=== PATIENT | male | born 1995 | race Caucasian/White ===

== ENCOUNTER 2017-02-12 12:13 | Emergency (ER) | payer BC ==
[~2017-02-12] VITALS: Ht 177.8 cm; Wt 80.4 kg
[2017-02-12 12:17] VITALS: TEMP 36.8; Ht 177.8 cm; Wt 80.4 kg
[2017-02-12] MEDS ORDERED: KETOROLAC TROMETHAMINE 30 MG/ML VIAL IV STA (12:28)
[2017-02-12] MEDS ORDERED: SODIUM CHLORIDE 0.9% 1000ML 1,000 ML IV STA (12:28)
[2017-02-12] MEDS ORDERED: METOCLOPRAMIDE HCL INJ 5 MG/ML 2 ML VIAL IV STA (12:28)
--- NOTE | 2017-02-12 12:37 | EMERGENCY ROOM VISIT NOTE ---
History Report prepared by Kristina: Geni Briones Under the Supervision of: Dr. Jarvis Sandoval M.D. First contact with patient: 12:21 Chief Complaint: ABDOMINAL PAIN Stated Complaint: STOMACH PAIN History of Present Illness The patient is a 21 year old male who presents to the Emergency Room with complaints of intermittent right sided abdominal pain beginning last night. The patient states that he was at the bars with his friends last night when he began to have a very sharp pain in his abdomen. He reports that he went home and after laying down for about 10 minutes the pain resolved before returning this morning. He notes that he went to [facility] today and was given Zofran for his nausea and vomiting and was told to come into the ED. The patient states that he has had diarrhea 2 times a day for the last few days. He complains of abdominal sensitivity. The patient denies any constipation. Source of History: patient Onset: last night Position: abdomen Quality: sharp Timing: intermittent Associated Symptoms: + diarrhea Note: Pt complains of abdominal sensitivity. He denies any constipation. Review of Systems See HPI for pertinent positives & negatives. A total of 10 systems reviewed and were otherwise negative. Past Medical & Surgical Medical Problems: (1) Asthma Family History No pertinent family history stated. Social History Smoking Status: Never Smoker Marital Status: single Housing Status: lives with roommate Occupation Status: [employer] student Current/Historical Medications Scheduled Alprazolam (Xanax), 1 MG PO Q6H Ondasetron Odt (Zofran Odt), 4 MG SL Q6H Scheduled PRN Amphetamine-Dextroamphetamine 15MG (Adderall Xr 15MG), 15 MG PO for . Amphetamine-Dextroamphetamine 5MG (Adderall 5MG), 5 MG PO for . Allergies Coded Allergies: No Known Allergies (Unverified , 02/12/17) Physical Exam Vital Signs Date Time Temp Pulse Resp B/P (MAP) Pulse Ox O2 Delivery O2 Flow Rate FiO2 02/12/17 14:35 72 18 105/76 100 02/12/17 13:31 64 15 98/72 97 Room Air 02/12/17 13:05 64 02/12/17 12:30 78 17 123/75 97 Room Air 02/12/17 12:17 36.8 88 16 124/79 96 Room Air Physical Exam GENERAL: Patient is a healthy-appearing well-nourished male HEAD: Normocephalic atraumatic EYES: Ocular movements intact pupils equal and react to light OROPHARYNX mucous membranes are moist no exudates present no erythema or edema present NECK: Supple no nuchal rigidity CHEST: Good equal expansion LUNGS: Clear and equal to auscultation CARDIAC: Normal S1 and S2 ABDOMEN: Soft nontender no guarding BACK: No CVA tenderness EXTREMITIES: No pain upon palpation normal muscle strength in all groups no clubbing cyanosis or edema NEURO: Patient is following commands and answering questions appropriately. Alert and oriented x3 Cranial Nerves 2-12 grossly intact Medical Decision & Procedures ER Provider Diagnostic Interpretation: X-ray results as stated below per interpretation by me and the radiologist: ABDOMEN 2VIEW W/PA CHEST RTN FINDINGS: Cardiomediastinal and hilar silhouettes are within normal limits. No pneumothorax, pleural effusion or focal airspace consolidation. No pneumoperitoneum on the upright projection. Bowel gas pattern is nonobstructive. No urolithiasis or fracture. IMPRESSION: Unremarkable acute abdominal series radiographs. The above report was generated using voice recognition software. It may contain grammatical, syntax or spelling errors. Electronically signed by: Dashawn Alcantar M.D. 02/12/2017 1:12 PM Dictated Date/Time: 02/12/2017 1:09 PM Laboratory Results 02/12/17 12:35 Red Blood Count 5.22, Mean Corpuscular Volume 86.8, Mean Corpuscular Hemoglobin 31.8, Mean Corpuscular Hemoglobin Concent 36.6, Mean Platelet Volume 9.1, Neutrophils (%) (Auto) 59.4, Lymphocytes (%) (Auto) 33.2, Monocytes (%) (Auto) 5.0, Eosinophils (%) (Auto) 1.6, Basophils (%) (Auto) 0.8, Neutrophils # (Auto) 2.28, Lymphocytes # (Auto) 1.27, Monocytes # (Auto) 0.19, Eosinophils # (Auto) 0.06, Basophils # (Auto) 0.03 02/12/17 12:35 Test 02/12/17 12:35 02/12/17 13:35 White Blood Count 3.83 K/uL (4.8-10.8) Red Blood Count 5.22 M/uL (4.7-6.1) Hemoglobin 16.6 g/dL (14.0-18.0) Hematocrit 45.3 % (42-52) Mean Corpuscular Volume 86.8 fL (80-100) Mean Corpuscular Hemoglobin 31.8 pg (25-34) Mean Corpuscular Hemoglobin Concent 36.6 g/dl (32-36) Platelet Count 269 K/uL (130-400) Mean Platelet Volume 9.1 fL (7.4-10.4) Neutrophils (%) (Auto) 59.4 % Lymphocytes (%) (Auto) 33.2 % Monocytes (%) (Auto) 5.0 % Eosinophils (%) (Auto) 1.6 % Basophils (%) (Auto) 0.8 % Neutrophils # (Auto) 2.28 K/uL (1.4-6.5) Lymphocytes # (Auto) 1.27 K/uL (1.2-3.4) Monocytes # (Auto) 0.19 K/uL (0.11-0.59) Eosinophils # (Auto) 0.06 K/uL (0-0.5) Basophils # (Auto) 0.03 K/uL (0-0.2) RDW Standard Deviation 39.3 fL (36.4-46.3) RDW Coefficient of Variation 12.4 % (11.5-14.5) Immature Granulocyte % (Auto) 0.0 % Immature Granulocyte # (Auto) 0.00 K/uL (0.00-0.02) Anion Gap 4.0 mmol/L (3-11) Est Creatinine Clear Calc Drug Dose 120.7 ml/min Estimated GFR () 124.1 Estimated GFR (Non- 107.1 BUN/Creatinine Ratio 10.2 (10-20) Calcium Level 10.0 mg/dl (8.5-10.1) Total Bilirubin 0.8 mg/dl (0.2-1) Direct Bilirubin 0.2 mg/dl (0-0.2) Aspartate Amino Transf (AST/SGOT) 15 U/L (15-37) Alanine Aminotransferase (ALT/SGPT) 24 U/L (12-78) Alkaline Phosphatase 65 U/L (45-117) Total Protein 7.8 gm/dl (6.4-8.2) Albumin 4.3 gm/dl (3.4-5.0) Lipase 75 U/L (73-393) Urine Color YELLOW Urine Appearance CLEAR (CLEAR) Urine pH 8.0 (4.5-7.5) Urine Specific [place] 1.020 (1.000-1.030) Urine Protein NEG (NEG) Urine Glucose (UA) NEG (NEG) Urine Ketones NEG (NEG) Urine Occult Blood NEG (NEG) Urine Nitrite NEG (NEG) Urine Bilirubin NEG (NEG) Urine Urobilinogen NEG (NEG) Urine Leukocyte Esterase NEG (NEG) Labs reviewed by ED physician. Medications Administered Medications (Trade) Dose Ordered Sig/Joan Route Start Time Stop Time Status Last Admin Dose Admin Sodium Chloride 1,000 ml @ 999 mls/hr Q1H1M STAT IV 02/12/17 12:28 02/12/17 13:28 DC 02/12/17 12:37 999 MLS/HR Metoclopramide HCl (Reglan Inj) 10 mg NOW STAT IV 02/12/17 12:28 02/12/17 12:29 DC 02/12/17 12:37 10 MG Ketorolac Tromethamine (Toradol Inj) 30 mg NOW STAT IV 02/12/17 12:28 02/12/17 12:29 DC 02/12/17 12:38 30 MG Famotidine (Pepcid Tab) 20 mg NOW STAT PO 02/12/17 13:16 02/12/17 13:18 DC 02/12/17 13:27 20 MG Sucralfate (Carafate Tab) 1 gm NOW STAT PO 02/12/17 13:16 02/12/17 13:18 DC 02/12/17 13:27 1 GM Lidocaine HCl (Viscous Lidocaine 2% Soln) 20 ml STK-MED ONCE .ROUTE 02/12/17 13:22 02/12/17 13:23 DC 02/12/17 13:27 20 ML Al Hydroxide/Mg Hydroxide (Maalox Susp) 30 ml STK-MED ONCE .ROUTE 02/12/17 13:22 02/12/17 13:23 DC 02/12/17 13:27 30 ML Ondansetron HCl (ZOFRAN ODT 4MG Home Pack) 1 homepack UD ONCE PO 02/12/17 14:15 02/12/17 14:16 DC 02/12/17 14:30 1 HOMEPACK ED Course 1221: Past medical records reviewed. The patient was evaluated in room C12B. A complete history and physical examination was performed. I offered to call the patient's parents and he refused. 1228: Toradol Inj 30mg IV, Reglan Inj 10g IV, Sodium Chloride 1000 ml @ 999 mls/ hr IV. 1316: Carafate Tab 1gm PO, Pepcid Tab 20mg PO, GI Cocktail 24ml PO. 1341: I reevaluated the patient. He is in no pain. I talked to him about a CT and he does not want to proceed with it. 1415: Ondansetron HCl 1 homepack PO. 1417: Upon reexamination the patient is doing well. I discussed results and treatment plan with the patient. He verbalizes agreement and understanding. The patient is ready for discharge. Medical Decision Differential diagnosis: Etiologies such as appendicitis, diverticulitis, PUD, biliary pathology, UTI, pancreatitis, obstruction, mesenteric ischemia, aortic pathology, infections, inflammatory bowel disease, renal colic, as well as others were entertained. This is a 21-year-old male who presents emergency department complaining of vomiting. Serial abdominal examinations were performed on the patient in the emergency department and at no tender the patient exhibited a surgical abdomen or even abdominal tenderness. In addition the patient is afebrile and does not have an elevation in his white blood count cell count. He has a normal lipase liver profile as well as chem profile. An IV was established, patient given Toradol along with a normal saline bolus and Zofran. The patient tolerated this well and was able swallow GI cocktail Pepcid and Carafate. I gave the patient the option of having a CAT scan however using shared medical decision- making with all the above findings the patient decided he did not wish to have a CAT scan. I do feel he can be safely discharged home at this point for follow -up with his primary care physician. Patient was in agreement with the treatment plan. I also offered to call this patient's parents however he refused. Medication Reconcilliation Current Medication List: was personally reviewed by me Blood Pressure Screening Patient's blood pressure: Normal blood pressure Blood pressure disposition: Did not require urgent referral Impression Primary Impression: Gastroenteritis Scribe Attestation The scribe's documentation has been prepared under my direction and personally reviewed by me in its entirety. I confirm that the note above accurately reflects all work, treatment, procedures, and medical decision making performed by me. Departure Information Dispostion Home / Self-Care Prescriptions Ondasetron Odt (ZOFRAN ODT) 4 Mg Tab 4 MG SL Q6H for Nausea, #6 TAB Prov: Jarvis Sandoval MD 02/12/17 Referrals No Doctor, Assigned (PCP) Forms HOME CARE DOCUMENTATION FORM, IMPORTANT VISIT INFORMATION Patient Instructions ED Gastroenteritis Report [place], My [facility] Additional Instructions Avoid alcohol use for next week Return if you develop fevers or pain You have been examined and treated today on an emergency basis only. This is not a substitute for, or an effort to provide, complete comprehensive medical care. It is impossible to recognize and treat all injuries or illnesses in a single emergency department visit. It is therefore important that you follow up closely with [facility]. Call as soon as possible for an appointment. Thank you for your time and consideration. I look forward to speaking with you again soon. Please don't hesitate to call us if you have any questions.
[2017-02-12 13:07] LABS: BASO % 0.8 %; BASO ABS # 0.03 K/uL (0-0.2); COMPLETE YES; EOS % 1.6 %; HEMATOCRIT 45.3 % (42-52); LYMPH % 33.2 %; LYMPH ABS # 1.27 K/uL (1.2-3.4); MEAN CELL VOLUME 86.8 fL (80-100); MEAN CORPUSCULAR HEMOGLOBIN 31.8 pg (25-34); MEAN CORPUSCULAR HGB CONC 36.6 g/dl (32-36); MEAN PLATELET VOLUME 9.1 fL (7.4-10.4); NEUT % 59.4 %; PLATELET COUNT 269 K/uL (130-400); RED BLOOD COUNT 5.22 M/uL (4.7-6.1); WHITE BLOOD COUNT 3.83 K/uL (4.8-10.8)
--- NOTE | 2017-02-12 13:13 | DIAGNOSTIC IMAGING REPORT ---
ABDOMEN 2VIEW W/PA CHEST RTN HISTORY: 21 years-old Male Pt c/o RUQ abd pain acute right upper quadrant abdominal pain. Initial exam. COMPARISON: None available. TECHNIQUE: Frontal view of the chest with erect and supine views of the abdomen FINDINGS: Cardiomediastinal and hilar silhouettes are within normal limits. No pneumothorax, pleural effusion or focal airspace consolidation. No pneumoperitoneum on the upright projection. Bowel gas pattern is nonobstructive. No urolithiasis or fracture. IMPRESSION: Unremarkable acute abdominal series radiographs. The above report was generated using voice recognition software. It may contain grammatical, syntax or spelling errors. Electronically signed by: Dashawn Alcantar M.D. 02/12/2017 1:12 PM Dictated Date/Time: 02/12/2017 1:09 PM
[2017-02-12] MEDS ORDERED: SUCRALFATE 1 GM TAB PO STA (13:16)
[2017-02-12] MEDS ORDERED: FAMOTIDINE 20 MG TAB PO STA (13:16)
[2017-02-12] MEDS ORDERED: GI COCKTAIL PO STA (13:16)
[2017-02-12] MEDS ORDERED: AMPH15CA7 PO (13:20)
[2017-02-12] MEDS ORDERED: ALPR-411 PO (13:20)
[2017-02-12] MEDS ORDERED: AMPH1TAB58 PO (13:20)
[2017-02-12] MEDS ORDERED: ALUMINUM/MAGNESIUM SUSP 30 ML UDC ONE (13:22)
[2017-02-12] MEDS ORDERED: LIDOCAINE HCL 2% VISC SOLN 20 ML UDC ONE (13:22)
[2017-02-12 13:27] LABS: BUN/CREATININE RATIO 10.2 (10-20); POTASSIUM 3.8 mmol/L (3.5-5.1)
[2017-02-12 13:56] LABS: MANUAL MICROSCOPIC REQUIRED? NO; URINE APPEARANCE CLEAR (CLEAR); URINE BILIRUBIN NEG (NEG); URINE COLOR YELLOW; URINE NITRITE NEG (NEG); UROBILINOGEN NEG (NEG)
[2017-02-12] MEDS ORDERED: ONDA4TAB10 SL (14:14)
[2017-02-12] MEDS ORDERED: ONDANSETRON HOME PACK 4MG OD TAB PO ONE (14:15)
[2017-02-12 14:29] LABS: REVIEW REQ? NO
[2017-02-12 14:35] VITALS: BP 105/76; PULSE 72; O2SAT 100
== END 2017-02-12 14:30 | disposition home or self-care (01) ==
LOC: C.EDB 12:14 → C.EDC 14:30
DX: K52.9 Noninfective gastroenteritis and colitis, unspecified (principal); J45.909 Unspecified asthma, uncomplicated